=== PATIENT | female | born 1975 | race Caucasian/White ===

== ENCOUNTER 2018-02-02 14:24 | Emergency (ER) | payer OTHER ==
[~2018-02-02 14:24] MED LIST: ACE3 PO; AMOX-362 PO; HYDR-4309 PO; IBUP800T37 PO; LOR5/325 PO; LORTABS PO; NO ROUTINE MEDS; OXYC-865 PO; PEN250 PO; PENI-24 PO; PRED-1 PO
[2018-02-02 14:33] VITALS: BP 116/82
[2018-02-02] MEDS ORDERED: NAPROXEN 500 MG TAB PO ONE (14:40)
--- NOTE | 2018-02-02 15:05 | ER Report ---
History and Physical Time Seen By MD: 14:40 Hx. of Stated Complaint: PT FELL WHILE TRYING TO STAND UP. TWISTED ANKLE, DIFFICULTY WALKING. HAPPENED AT APPROXIMATELY 11AM (BIANKA RAWLS MD) HPI/ROS CHIEF COMPLAINT: Ankle sprain HISTORY OF PRESENT ILLNESS: Patient twisted left ankle while at work. This was an inversion injury. She is able to bear some weight reports pain mostly to the anterior lateral malleolus but she does also some pain to the base of the 5th metatarsal. Ox mole pain. (BIANKA RAWLS MD) Allergies: Coded Allergies: No Known Drug Allergies (Verified , 02/02/18) Home Meds Discontinued Scripts Oxycodone Hcl/Acetaminophen (PERCOCET 5-325 MG TABLET) 1 Each Tablet, 1 EACH PO Q4-6H Y for PAIN, #15 Prov:SP KRAUS DO 11/11/16 Prednisone 10 Mg Tab (PREDNISONE 10 MG TAB) 10 Mg Tablet, 10 MG PO QDAY Y for reduce inflammation, #9 2 tabs daily for 3 days 1 tab daily for 3 days Prov:SP KRAUS DO 11/11/16 Oxycodone Hcl/Acetaminophen (PERCOCET 5-325 MG TABLET) 1 Each Tablet, 1 EACH PO Q4H for PAIN, #10 TAB 0 Refills Prov:BIANKA RAWLS MD 07/06/16 Ibuprofen (IBUPROFEN) 800 Mg Tablet, 1 TAB PO Q8H, #30 Prov:TERRI YUEN DO 04/29/15 Past Medical/Surgical History Noncontributory towards the chief complaint (BIANKA RAWLS MD) Hx Smoking: Yes (2-3 per day ) Smoking Status: Current: Every Day Smoker Exposure to Second Hand Smoke?: Yes Hx Substance Use Disorder: No Hx Alcohol Use: Yes (RARE) (BIANKA RAWLS MD) Constitutional Vital Sign - Last 24 Hours 02/02/18 14:33 Temp 98.0 Pulse 79 Resp 16 B/P (MAP) 116/82 Pulse Ox 94 O2 Delivery Room Air (MONSTER BLACKWOOD V ) Physical Exam General appearance: alert no distress Left ankle: There is no significant swelling. There is no obvious deformity to the ankle. There is moderate tenderness to the lateral malleolus. Ankle joint is stable and there is no tenderness over the achilles tendon. The foot is mild tender to the base of 5th metatarsal. Neurologic exam: The patient has normal sensation distal to the injury. Vascular exam: Normal pulses and capillary refill in the foot [ ] DIFFERENTIAL DIAGNOSIS: After history and physical exam differential diagnosis was considered for ankle injury including sprain, fracture, dislocation and soft tissue injury. (IBANKA RAWLS MD) Medical Decision Making EKG/Imaging Imaging no fx or dislocation (MONSTER BLACKWOOD DO) ED Course/Re-evaluation ED Course 02/02/2018 3:05:47 pm plan at this time will be x-ray of the left ankle and foot we'll also give Naprosyn for pain (BIANKA RAWLS MD) ED Course 02/02/2018 3:58:42 pm Pt signed out to me pending xray report. PT has no fx identified on ankle or foot. will place in airsplint and cruthces. pt to follow up with [facility] if not improving with RICE Decision to Disposition Date: Feb 02, 2018 Decision to Disposition Time: 16:00 (MONSTER BLACKWOOD DO) Depart Departure Latest Vital Signs Vital Signs Date Time Temp Pulse Resp B/P (MAP) Pulse Ox O2 Delivery O2 Flow Rate FiO2 02/02/18 14:33 98.0 79 16 116/82 94 Room Air (MONSTER BLACKWOOD DO) Impression: Primary Impression: Left ankle sprain Condition: Condition Unchanged Disposition: HOME OR SELF-CARE Referrals: MARLO SALDIVAR PA-C (PCP) [facility] 5 Days Departure Forms: ER Transition Record, Medications Reconciliation, Off Work/ School Form, School or Work Release?: Work Number of days to be released: 2 Patient Portal Information Patient Instructions: Ankle Sprain (GEN) Additional Instructions: Ice, elevate and rest your ankle. Use your crutches and do not walk on your ankle for 48 hours. You may start to put partial weight on your foot after 48 hours. If pain continues then go back to no weight and follow up with orthopedics. No work tomorrow. Motrin (advil, ibuprofen) 600mg every 6 hours as needed for pain. Tylenol 650mg every 4 hours as needed for pain. Problem Qualifiers Primary Impression: Left ankle sprain Encounter type: initial encounter Involved ligament of ankle: unspecified ligament Qualified Codes: S93.402A - Sprain of unspecified ligament of left ankle, initial encounter BIANKA RAWLS MD Feb 02, 2018 15:05 MONSTER BLACKWOOD DO Feb 02, 2018 16:03
--- NOTE | 2018-02-02 15:51 | RADIOLOGY IMAGING REPORT ---
FACILITY: [facility] - [place] PATIENT NAME: Kiera Rodrigues : 1975 MR: [id number] V: [id number] EXAM DATE: ORDERING PHYSICIAN: BIANKA RAWLS TECHNOLOGIST: Location: [facility] Patient: Kiera Rodrigues : 1975 Visit/Account:[id number] Date of Sevice: 02/02/2018 FOOT 3 VIEW LEFT HISTORY: Inversion, pain. COMPARISON: None. FINDINGS: AP, oblique and lateral views left foot obtained. Chronic appearing ossicles adjacent to cuboid. Moderate sized inferior calcaneal enthesophyte. Possib le hammertoe deformities 2nd through 5th digits. Very mild degenerative changes 1st MTP joint. No estefania dence of acute fracture or malalignment. Soft tissues grossly unremarkable. IMPRESSION: Chronic findings detailed above. No evidence of acute osseous injury left foot. Report Dictated By: Toney Malhotra MD at 02/02/2018 3:46 PM Report E-Signed By: Toney Malhotra MD at 02/02/2018 3:47 PM WSN:[id number]
--- NOTE | 2018-02-02 15:52 | RADIOLOGY IMAGING REPORT ---
FAC[place]: [facility] [place]IENT NAME: Kiera Rodrigues : 1975 MR: [id number] V: [id number] EXAM DATE: ORDERING PHYSICIAN: BIANKA RAWLS TECHNOLOGIST: Location: [facility] Patient: Kiera Rodrigues : 1975 Visit/Account:[id number] Date of Sevice: 02/02/2018 ANKLE 3 VIEW MIN LEFT HISTORY: inversion COMPARISON: None. FINDINGS: AP, mortise and lateral views left ankle obtained. Moderate sized inferior calcaneal enthesophyte. Small chronic appearing ossicles adjacent to cuboid. Osseous structures otherwise unremarkable, intact and normally aligned. Soft tissues grossly unremarkable. IMPRESSION: Chronic findings detailed above. No evidence of acute osseous injury left ankle. Report Dictated By: Toney Malhotra MD at 02/02/2018 3:47 PM Report E-Signed By: Toney Malhotra MD at 02/02/2018 3:48 PM WSN:[id number]
== END 2018-02-02 16:20 | disposition home or self-care (01) ==
LOC: ER 14:31
DX: S93.402A Sprain of unspecified ligament of left ankle, initial encounter (principal); X50.1XXA Overexertion from prolonged static or awkward postures, initial encounter; Y99.0 Civilian activity done for income or pay; F17.200 Nicotine dependence, unspecified, uncomplicated
CPT/HCPCS: 73610; 73630; 99283; L1930